=== PATIENT | male | born 1945 | race Caucasian/White ===

== ENCOUNTER 2019-11-27 19:25 | Inpatient (IN) | payer MEDICARE ==
[~2019-11-27] VITALS: Ht 175.3 cm; Wt 76.8 kg
[~2019-11-27 19:25] MED LIST: GLYB5TAB3 PO; LISI-338 PO; METF500T16 PO; METO50TA6 PO
[2019-11-27 19:43] LABS: BASO # 0.1 x10^3/uL (0.0-0.2); BASO % 1 % (0-3); EOS # 0.2 x10^3/uL (0.0-0.7); EOS % 3 % (0-3); HEMATOCRIT 38.4 % (39.0-53.0); HEMOGLOBIN 13.2 g/dL (13.0-17.5); LYMPH # 2.9 x10^3/uL (1.0-4.8); LYMPH % 40 % (24-48); MEAN CORPUSCULAR HEMOGLOBIN 35 pg (25-35); MEAN CORPUSCULAR HGB CONC 34 g/dL (31-37); MEAN CORPUSCULAR VOLUME 101 fL (79-100); MONO # 0.9 x10^3/uL (0.0-1.1); MONO % 12 % (0-9); NEUT # 3.3 x10^3/uL (1.8-7.7); NEUT % 45 % (31-73); PLATELET COUNT 160 x10^3/uL (140-400); RED BLOOD COUNT 3.82 x10^6/uL (4.30-5.70); RED CELL DISTRIBUTION WIDTH 13.6 % (11.5-14.5); WHITE BLOOD COUNT 7.5 x10^3/uL (4.0-11.0)
[2019-11-27 19:52] LABS: CALCIUM 8.6 mg/dL (8.5-10.1); CREATININE 1.3 mg/dL (0.7-1.3); GFR 53.8; POTASSIUM 3.6 mmol/L (3.5-5.1)
--- NOTE | 2019-11-27 20:29 | PHYS DOC ---
General Adult EDM: Chief Complaint: MECHANICAL FALL HPI: HPI: Patient is a 74-year-old male who presents to the emergency room with no complaints. Patient states that he does not believe what they are saying happened happened. He has no concerns. He denies chest pain, shortness of breath, dizziness. He states he has a mild headache. He states he never fell and he never lost consciousness. According to EMS, patient was walking backwards and fell hitting the back of his head. He then became unresponsive and quit breathing. He then was given compressions by friends and quickly came around. Review of Systems: Review of Systems: General: Denies fever, chills, sweats, fatigue Eyes: Denies drainage, blurred vision, eye redness HENT: Denies rhinorrhea, sore throat, earache Respiratory: Denies cough, shortness of breath, wheezing Cardiac: Denies edema, palpitations, chest pain GI: Denies abdominal pain, Nausea, vomiting MSK: Denies back pain, neck pain Skin: Denies rash, jaundice Neuro: Denies dizziness. Reports headache Psychiatric: Denies SI/HI Heart Score: Risk Factors: Risk Factors: DM, Current or recent (<one month) smoker, HTN, HLP, family history of CAD, obesity. Risk Scores: Score 0 - 3: 2.5% MACE over next 6 weeks - Discharge Home Score 4 - 6: 20.3% MACE over next 6 weeks - Admit for Clinical Observation Score 7 - 10: 72.7% MACE over next 6 weeks - Early Invasive Strategies Allergies: Allergies: Allergies Coded Allergies Type Severity Reaction Last Updated Verified No Known Drug Allergies 03/21/15 No Physical Exam: PE: General: Awake, alert, NAD. Well Nourished, well hydrated. Cooperative HEENT: [Atraumatic], EOMI, PERRL, airway patent, moist oral mucosa, no nasal septal hematoma, no facial crepitus or deformity Neck: Supple, trachea midline,[no c-spine tenderness] Respiratory: CTA bilaterally, normal effort, no wheezing/crackles, no crepitus CV: RRR, no murmur, cap refill <2, 2+ bilateral radial/DP pulses GI: Soft, nondistended, nontender, no masses MSK: [No obvious deformities], pelvis stable and nontender Skin: Warm, dry, [intact] Neuro: A&O x3, speech NL, sensory and motor grossly intact, no focal deficits Psych: Normal affect, normal mood, not suicidal or homicidal Current Patient Data: Labs: Laboratory Tests Test 11/27/19 19:30 White Blood Count 7.5 x10^3/uL (4.0-11.0) Red Blood Count 3.82 x10^6/uL (4.30-5.70) L Hemoglobin 13.2 g/dL (13.0-17.5) Hematocrit 38.4 % (39.0-53.0) L Mean Corpuscular Volume 101 fL (79-100) H Mean Corpuscular Hemoglobin 35 pg (25-35) Mean Corpuscular Hemoglobin Concent 34 g/dL (31-37) Red Cell Distribution Width 13.6 % (11.5-14.5) Platelet Count 160 x10^3/uL (140-400) Neutrophils (%) (Auto) 45 % (31-73) Lymphocytes (%) (Auto) 40 % (24-48) Monocytes (%) (Auto) 12 % (0-9) H Eosinophils (%) (Auto) 3 % (0-3) Basophils (%) (Auto) 1 % (0-3) Neutrophils # (Auto) 3.3 x10^3/uL (1.8-7.7) Lymphocytes # (Auto) 2.9 x10^3/uL (1.0-4.8) Monocytes # (Auto) 0.9 x10^3/uL (0.0-1.1) Eosinophils # (Auto) 0.2 x10^3/uL (0.0-0.7) Basophils # (Auto) 0.1 x10^3/uL (0.0-0.2) Sodium Level 134 mmol/L (136-145) L Potassium Level 3.6 mmol/L (3.5-5.1) Chloride Level 98 mmol/L (98-107) Carbon Dioxide Level 25 mmol/L (21-32) Anion Gap 11 (6-14) Blood Urea Nitrogen 13 mg/dL (8-26) Creatinine 1.3 mg/dL (0.7-1.3) Estimated GFR (Cockcroft-Gault) 53.8 Glucose Level 109 mg/dL (70-99) H Calcium Level 8.6 mg/dL (8.5-10.1) Troponin I Quantitative < 0.017 ng/mL (0.000-0.055) Laboratory Tests 11/27/19 19:30 Laboratory Tests 11/27/19 19:30 EKG: EKG: [] Radiology/Procedures: Radiology/Procedures: [] Course & Med Decision Making: Course & Med Decision Making Pertinent Labs and Imaging studies reviewed. (See chart for details) Patient is 74-year-old male who presents to the emergency room after falling backwards and hitting his head. Patient does not remember occurrence. Is unclear at this time given that the patient is very insistent that this never happened. I have convinced the patient to allow us to do a work-up but just in case he does not remember falling and hitting his head. He is not on blood thinners at this time. CT head, C-spine were ordered. Basic labs were also done. EKG does not show any significant changes. CT head shows multiple intracranial hemorrhages. This was discussed with Dr. Hurst the on-call neurosurgeon. He recommends admission to the ICU with neuro checks every 1 hour. Will admit the patient to the ICU at this time. I have discussed the results with the patient. He has become more confused since arrival but does not have any other neurologic deficits. Adrianna Disclaimer: Adrianna Disclaimer: This electronic medical record was generated, in whole or in part, using a voice recognition dictation system. Critical Care Time Critical Care: Authorized and Performed by: Renny Gaffney MD Total critical care time: approximately 45 minutes Due to a high probability of clinically significant, life threatening deterioration, the patient required my highest level of preparedness to interven e emergently and I personally spent this critical care time directly and personally managing the patient. This critical care time included obtaining a history; examining the patient; pulse oximetry; ventilator management if necessary; ordering and review of studies; arranging urgent treatment with d evelopment of a management plan; evaluation of patient's response to treatment; frequent reassessment; discussion with patient/family; and, discussions with other providers. This critical care time was performed to assess and manage the high probability of imminent, life-threatening deterioration that could result in multi-organ failure. It was exclusive of separately billable procedures and treating other patients and teaching time. Please see MDM section and the rest of the note for further information on patient assessment and treatment. Departure Departure Impression: Primary Impression: Fall Additional Impressions: SDH (subdural hematoma) SAH (subarachnoid hemorrhage) Disposition: ADMITTED INPATIENT Condition: CRITICAL Referrals: RYANN WAN MD (PCP) Justicifation of Admission Dx: Justifications for Admission: Justification of Admission Dx: Yes RENNY GAFFNEY MD Nov 27, 2019 20:29
--- NOTE | 2019-11-27 20:39 | RAD ---
EXAM: CT HEAD WITHOUT IV CONTRAST CLINICAL HISTORY: Reason: fall / Spl. Instructions: / History: COMPARISON: None. TECHNIQUE: Routine CT of the head without contrast. Soft tissues and bone windows were reviewed. PQRS compliance statement - One or more of the following individualized dose reduction techniques were utilized for this study: 1. Automated exposure control 2. Adjustment of the mA and/or kV according to patient size 3. Use of iterative reconstruction technique FINDINGS: A right subdural hematoma measures up to 1 cm in thickness overlying the right frontoparietal region. A shallow left subdural hematoma measures approximately 3 mm in thickness. In addition a small subdural hematoma is seen along the left falx measuring up to 4 mm in thickness. Subarachnoid hemorrhage is seen in the left frontal and bilateral temporal regions. There is mild mass effect on the gyri/sulci without significant midline shift. Subcortical, periventricular as well as deep white matter hypoattenuation likely changes of chronic small vessel disease. Araujo-white differentiation is maintained with no evidence of edema. There is no mass effect or shift of the intracranial structures. The ventricles, basilar cisterns and cortical sulci are normal in size and configuration for the patients stated age. The cerebellum and brainstem are unremarkable. The calvarium demonstrates no evidence of fracture or focal lesion. Nodular opacity left sphenoid sinus likely sinusitis. Mastoid air cells are clear. The visualized portions of the orbits are normal. IMPRESSION: 1. Bilateral subdural hematomas, greater on the right, with extension to the vertex on the right. Although there is mild mass effect on the adjacent gyri/sulci, no definite midline shift. 2. Bilateral subarachnoid hemorrhage is also seen. EXAM: CT CERVICAL SPINE WITHOUT IV CONTRAST CLINICAL HISTORY: Reason: fall / Spl. Instructions: / History: COMPARISON: None available. TECHNIQUE: Helical CT of the cervical spine was performed. Axial, coronal and sagittal reformatted images were also performed. PQRS compliance statement - One or more of the following individualized dose reduction techniques were utilized for this study: 1. Automated exposure control 2. Adjustment of the mA and/or kV according to patient size 3. Use of iterative reconstruction technique FINDINGS: Vertebral body heights are preserved. No acute fracture. Mild C5-6 and C6-7 disc height loss. Anterior endplate osteophytes are seen. Facet degenerative changes bilaterally. No spondylolisthesis. Bilateral emphysematous changes are seen in the lung apices. Tracheostomy changes seen. IMPRESSION: 1. Multilevel spondylosis as above 2. Negative acute fracture or subluxation. Findings discussed with RENNY GAFFNEY at 11/27/2019 8:36 PM. FOR INTERNAL CODING PURPOSES RESULT CODE: (C) Electronically signed by: Winston Roque MD (11/27/2019 8:36 PM) [facility]
[2019-11-27 20:42] LABS: BILIRUBIN,URINE NEGATIVE (NEG); CLARITY,URINE CLEAR; NITRITE,URINE NEGATIVE (NEG); PH,URINE 5.5 (<5.0-8.0); PROTEIN,URINE NEGATIVE (NEG-TRACE); UROBILINOGEN,URINE 0.2 mg/dL (0.2 mg/dL)
--- NOTE | 2019-11-27 20:44 | RAD ---
CHEST PA LATERAL History: Reason: dizzy / Spl. Instructions: / History: Comparison: May 29, 2015 Findings: Right upper lobe masslike opacity. Linear left basilar atelectasis or scarring. Right chest wall port. No pneumothorax. No pleural effusion. Small left apical calcified pulmonary nodule, likely prior granulomas disease. Impression: 1. Right upper lobe masslike opacity. Recommend comparison with more recent examinations and patient history. CT can further evaluate as clinically warranted. Electronically signed by: Yamil Saleem DO (11/27/2019 8:41 PM) [facility]
[2019-11-27 20:47] LABS: COLOR,URINE STRAW
[2019-11-27 20:48] LABS: BACTERIA,URINE 0 /HPF (0-FEW); RBC,URINE OCC /HPF (0-2); WBC,URINE OCC /HPF (0-4)
[2019-11-28] VITALS (15 sets, daily range): BP systolic 119–175; BP diastolic 45–82
[2019-11-28] MEDS ORDERED: MORPHINE SULFATE 10 MG/ML VIAL. IV ONE (01:15)
[2019-11-28] MEDS: LABETALOL 20 MG/4 ML DISP.SYRIN. IVP PRN ×2 (02:26→04:58)
--- NOTE | 2019-11-28 02:35 | NUR ---
Pt. admitted to ICU room 103 from ED. Neuro assessment completed on arrival, pt. unable to state full name and date repeating phrases, stated he is in a hospital after repeated questions. Normal strength x4 extremities. Noted change from ED assessment. Amie SAWYER, paged and returned call, notified of these findings, to continue to monitor at this time, repeat CT ordered for AM. Orders for pain and BP medications received. Pt. also had one episode of emesis.
--- NOTE | 2019-11-28 07:22 | EKG ---
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
--- NOTE | 2019-11-28 07:57 | RAD ---
EXAM: CT Head without IV contrast INDICATION: Reason: SAH/SDH / Spl. Instructions: / History: TECHNIQUE: Multi-detector row CT images were obtained of the head without the use of IV contrast. All CT scans performed at this facility utilize dose optimization techniques as appropriate to the exam, including the following: Automated exposure control and adjustment of the mA and/or KV according to patient size (this includes techniques or standardized protocols for targeted exams where dose is indication/reason for exam). COMPARISON: Noncontrast head CT 11/27/2019 FINDINGS: BRAIN PARENCHYMA: Interval development of a 3 cm acute hematoma in the left posterior frontal lobe with the swirl sign of active extravasation of unclotted blood. It may have been present on the previous examination but was indistinguishable from subarachnoid hemorrhage given its small size (6 mm width) and linear configuration on that scan. No acute infarct. No midline shift. VENTRICLES & EXTRA-AXIAL SPACES: Ventricles are within normal limits in size. Basilar cisterns are patent. Patient's right subdural hematoma has expanded as well and also shows a swirl sign, best appreciated on image 21 of series 2. Now, right hemispheric subdural hematoma measures 9 mm in depth, compared with 5 mm at the comparable level on the prior scan. Small left subdural hematoma is unchanged at approximately 4 mm dense. Bilateral subarachnoid hemorrhage remains present, most conspicuous in the bilateral sylvian fissures is also increased slightly in volume in comparing axial image 14 series 2 this exam with image 13 of series 2 on the prior study. ORBITS: Orbital contents are unremarkable. SINUSES: Visualized paranasal sinuses and mastoid air cells are clear. OSSEOUS & SOFT TISSUES: Calvarium and skull base are intact. IMPRESSION: Worsening intracranial hemorrhage in both the intra-axial and extra-axial compartments as described, notably interval development of a 3 cm intraparenchymal hematoma with active bleeding in the posterior left frontal lobe and increase in size of a right subdural hematoma from 5 to 9 millimeters without midline shift. Results telephoned to the ICU where the patient's nurse Veronica took the report on behalf of the ICU physician at 7:45 AM on 11/28/2019. Electronically signed by: Jailyn Atkins MD (11/28/2019 7:54 AM) [facility] [place]
[2019-11-28] MEDS ORDERED: IV DEXTROSE 5% - 0.9 % NACL 1,000 ML IV SCH (10:00)
[2019-11-28] MEDS ORDERED: ONDANSETRON PF 4 MG/2 ML VIAL. IVP PRN (10:00)
[2019-11-28] MEDS ORDERED: DEXTROSE 50% 25 GM / 50ML DISP.SYRIN. IV PRN (10:30)
--- NOTE | 2019-11-28 10:42 | PDOC ---
Provider Note Date of Service: DATE: 11/28/19 TIME: 10:40 Provider Note Pt seen in ICU.H&P dictated.#[id number]. spoke with RN. Tried to contact emergency no,not successful. Neuro surgery and critical care consult. Justifications for Admission Other Justification BRANDON NEWSOME MD Nov 28, 2019 10:42
[2019-11-28 10:52] LABS: PROTHROMBIN TIME PATIENT 13.5 SEC (11.7-14.0)
--- NOTE | 2019-11-28 11:13 | HP ---
ADMIT DATE: 11/28/2019 LOCATION: ICU, Room-103. ATTENDING PHYSICIAN: Radha Ayers MD REASON FOR ADMISSION TO THE HOSPITAL: Intracranial bleed. HISTORY OF PRESENT ILLNESS: The patient is a 74-year-old male, patient of Dr. Radha Ayers. The patient has a history of throat cancer. He has a chronic tracheostomy. The patient as per the record shows he was drinking yesterday and then later on the patient was walking and he fell backwards and he became unresponsive, acute breathing and had a compression by a friend, onlooker and paramedics was called. The patient was brought to the hospital. The patient was talking in the ER, had a CT head, shows a subdural bleed. The patient was admitted to the ICU and Neurosurgery was consulted. This morning, the patient was a little bit more confused, had a CT head, which shows worsening of the bleeding and he has developed a parenchymal bleeding. PAST MEDICAL HISTORY: Has throat cancer. 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 Had an aortic aneurysm stent in 2004. ALLERGIES: No known drug allergies. MEDICATIONS AT HOME: The patient is on lisinopril, metformin, metoprolol, glyburide. PERSONAL HISTORY: Not available at this time. SOCIAL HISTORY: Lives with his significant other as per the record, not able to contact. REVIEW OF SYSTEMS: The patient is awake, but does not talk or does not communicate. PHYSICAL EXAMINATION: VITAL SIGNS: Temperature 97, pulse 109, respirations 18, blood pressure 164/109, 97 on room air. HEENT: Head: Does not show any laceration or hematoma. Pupils equal. Oral cavity: Not examined. The patient has a chronic tracheostomy stoma. CHEST: Symmetrical. CARDIOVASCULAR: S1, S2. LUNGS: Good air entry. ABDOMEN: Soft. No mass palpable. EXTERNAL GENITALIA: Gomez placed in the ER. RECTAL: Deferred. EXTREMITIES: The patient is moving upper extremities. 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 Not able to lift lower extremities when instructed. LABORATORY DATA: White count 7.5, hemoglobin 13, platelets 160. Electrolytes are sodium 134, potassium 3.6, chloride 98, bicarb 25, anion gap 11, BUN 13, creatinine 1.3, glucose 109. Troponin is negative. Urine was negative. Rapid COVID test was negative. Chest x-ray: Right upper lobe mass-like opacity. The CT at the time of admission shows bilateral subdural hematomas; greater on the right, bilateral subarachnoid hemorrhage, has a chronic tracheostomy. He had a CT of the neck and the patient had a repeat CT head this morning, which shows worsening intracranial hemorrhage, 3-cm intraparenchymal hematoma, left frontal lobe and an increase in the size of the right subdural hematoma. FINAL IMPRESSION: 1. Intracranial bleed. 2. Subdural hematomas. 3. Intraparenchymal bleed, left frontal lobe. 4. Chronic tracheostomy. 5. History of laryngeal cancer, had a laryngectomy. 6. History of abdominal aortic aneurysm many years ago. 7. Diabetes. 8. Abnormal chest x-ray with apical mass, needs further evaluation down the road.Apparently pt was diagnosed with lung cancer 9 months ago and being treated at with immuno therapy PLAN: At this time, the patient was admitted to the ICU. Cardene for blood pressure, IV fluids blood sugars. Neurosurgery was consulted. Both the numbers are available in the chart of his significant other and the sister; not able to get in touch. Left a message with the patient's sister's number. PROGNOSIS: Guarded. BRANDON NEWSOME MD DR: XIANG/fox JOB#: [id number] / [id number] FERNANDO
--- NOTE | 2019-11-28 11:25 | CONS ---
DATE OF CONSULTATION: 11/28/2019 PULMONARY CONSULTATION ATTENDING PHYSICIAN: Link Mehta MD REASON FOR CONSULTATION: Abnormal chest x-ray. HISTORY OF PRESENT ILLNESS: The patient is a 74-year-old male, who has history of laryngeal CA, status post laryngectomy and has open stoma. He was brought into the hospital after he had some mild headaches and he fell hitting the back of his head. He became unresponsive. He was given chest compression by friends and quickly had turnaround. The patient underwent imaging study and his CT head revealed a worsening intracranial hemorrhage and internal development of 3-cm hematoma with active bleeding in the posterior left frontal lobe. The patient's chest x-ray was abnormal and showed a mass-like density in the right upper lobe. He is not in any obvious respiratory distress. He responds to commands, but does not verbalize. PAST MEDICAL HISTORY: History of laryngeal CA, status post laryngectomy; details are not available. He has an open stoma. PAST SURGICAL HISTORY: As above. ALLERGIES: None. MEDICATIONS: Reviewed as listed in the MRAD. REVIEW OF SYSTEMS: Unable to obtain from the patient. PHYSICAL EXAMINATION: VITAL SIGNS: Reviewed. He is afebrile, pulse ox 93% on room air. NECK: Supple. He has an open laryngeal stoma. LUNGS: With diminished breath sounds. CARDIOVASCULAR: With a regular rate. ABDOMEN: Soft. EXTREMITIES: With no pitting edema. LABORATORY DATA: Reviewed. Coronavirus is negative. BUN is 13 and creatinine 1.3. INR 1.1. White cell count 7.5. IMPRESSION: 1. Abnormal chest x-ray with mass-like density in the right upper lobe. d/w patients family. Pt has known lung cancer ,being treated at with chemo and immune therapy. Clinically less likely pneumonia. 2. Status post fall and abnormal CT head consistent with intracranial hemorrhage and subdural hematoma. Neurosurgery has been consulted. RECOMMENDATIONS: 1. Discussed with Dr. Mehta. No need for CT chest . Pt being followed at for lung cancer. 2. Follow Neurosurgery recommendation. 3. Tracheal stoma care. 4. Monitor blood pressure closely per Neurosurgery. 5. We will follow along with you. 6. d/w Dr Mehta. Family wants to transfer him to . CRITICAL CARE TIME: 30 minutes. KUSUM CHAVEZ MD DR: DANNY/fox JOB#: [id number] / [id number] FERNANDO
--- NOTE | 2019-11-28 11:48 | NUR ---
patient's step daughter, Elvi Nolasco- [phone], at bedside. Reports that pt has been recently diagnosed with lung cancer in Feb 2019 and has been undergoing chemotherapy+immunotherapy at cancer center. Also states that pt has voiced before his desire to receive care at because they accept his insurance, which is [employer]. Requests to transfer to at this time. Dr. Mehta, Dr. Hurst notified of pt desire to transfer. transfer center notified, information provided to Melina- [phone], as well as Dr. Mehta to see if transfer is possible. Currently, Dr. Mehta on unit, given Dr Hurst's phone number- will call him to discuss case and transfer. Daughter Elvi still at bedside, updated on situation.
[2019-11-28] MEDS ORDERED: INSULIN LISPRO 300 UNITS/3 ML VIAL. SQ SCH (12:00)
--- NOTE | 2019-11-28 12:43 | PDOC ---
Provider Note Date of Service: DATE: 11/28/19 TIME: 1045 Provider Note Patient seen and examined consulted for ICH awake, alert, confused JARQUIN, right> left Imaging reviewed- Right convexity SDH which is 0.9 cm in greatest thickness, Subarachnoid blood is present, posterior frontal lobe intraparenchymal hemorrhage measuring 3 cm, no shift present will continue to monitor in ICU, no surgery planned at this time, BP control Neurology and Pulmonary following D/W Dr. Mehta and RN Justifications for Admission Other Justification MARI GUZMAN MD Nov 28, 2019 12:43
--- NOTE | 2019-11-28 13:33 | NUR ---
report called to [facility], nurse STEVEN. [id number], phone number [phone]
--- NOTE | 2019-11-28 14:41 | NUR ---
pt picked up by [facility] to transfer to . Pt alert, following commands at time of transfer. All VSS at time of transport. report given to nurse Naga. Elsa Anglin called and notified of transport and given rm #,phone # at .
--- NOTE | 2019-12-05 22:16 | PDOC ---
Provider Note Date of Service: DATE: 12/05/19 TIME: 22:15 Provider Note Discharge/Transfer summary dictated. #[id number]. Justifications for Admission Other Justification BRANDON NEWSOME MD Dec 05, 2019 22:16
--- NOTE | 2019-12-05 22:37 | DS ---
DATE OF DISCHARGE: 11/28/2019 REASON FOR ADMISSION TO THE HOSPITAL: Mechanical fall, intracranial bleed. CONSULTATIONS: 1. Dr. Hurst, Neurosurgery. 2. Dr. Gannon, Pulmonology. PROCEDURES DONE: CT head x 2. HOSPITAL COURSE: The patient is a 74-year-old male, patient of Dr. Ryann Ayers. The patient has a history of laryngeal cancer more than 5 years ago, had a laryngectomy, has open tracheostomy stoma to help him breathe. He also was recently found to have a lung cancer. He is getting chemotherapy, apparently at . The patient went out for dinner and while walking, he had fallen down and hit his head, was found to have intracranial bleed. The patient was also become slightly unresponsive at the scene. CPR was given by the friend and he improved. The patient was brought to the hospital. Initial CT head shows no cervical fracture. The patient had bilateral subdural hematomas, greater on the right. No midline shift. The patient was admitted to the intensive care unit, seen by Neurosurgery, had repeat CT head done the next day, which shows worsening intracranial hemorrhage. The patient has developed 3 cm intraparenchymal hematoma at the left frontal lobe. Increased size of the right subdural hematoma from 5-9 mm without midline shift. In the meantime, the patient's family requested the patient be transferred to because all his treatments for cancer were at and also the patient is out of network. The patient has a [employer] insurance and [place] is not covered. The patient was transferred to as per the patient's family request. I spoke with Critical Care attending at . FINAL DIAGNOSES: 1. Bilateral subdural hematoma and intracranial bleed, left temporal lobe. 2. Recent diagnosis of lung cancer. The patient was getting chemotherapy at . 3. History of laryngeal cancer, had a laryngectomy as a tracheostomy stoma. 4. Chronic obstructive pulmonary disease. 5. Family reports he also drinks alcohol and the patient was transferred to . DISCHARGE MEDICATIONS: See MRAD for discharge medications. PROGNOSIS: Poor. BRANDON NEWSOME MD DR: XIANG/fox JOB#: [id number] / [id number] RYANN Lewis MD
== END 2019-11-28 14:23 | disposition short-term general hospital (02) | DRG 83 ==
LOC: ER 19:25 → 1 WEST ICU 23:00
PROVIDERS: ADMIT Internal Medicine; ATTEND Internal Medicine
DX: S06.5X9A Traumatic subdural hemorrhage with loss of consciousness of unspecified duration, initial encounter (principal); G93.40 Encephalopathy, unspecified; S06.6X9A Traumatic subarachnoid hemorrhage with loss of consciousness of unspecified duration, initial encounter; W18.39XA Other fall on same level, initial encounter; Z20.828 Contact with and (suspected) exposure to other viral communicable diseases; Z85.21 Personal history of malignant neoplasm of larynx; Z85.819 Personal history of malignant neoplasm of unspecified site of lip, oral cavity, and pharynx; Z93.0 Tracheostomy status; Z79.899 Other long term (current) drug therapy; Y93.89 Activity, other specified; Y92.89 Other specified places as the place of occurrence of the external cause; Y99.8 Other external cause status
CPT/HCPCS: 36415; 70450; 71046; 72125; 80048; 81001; 84484; 85025; 85610; 87426; 93005; J1815; J2270; J2405; J3490; J7042; J7050; 99291-25; G0378; J7030; U0003-CS